=== PATIENT | female | born 1985 | race Caucasian/White ===

== ENCOUNTER 2016-08-02 14:42 | Inpatient (IN) | payer MEDICAID ==
[~2016-08-02] VITALS: Ht 157.5 cm; Wt 83.2 kg
[2016-08-02 17:12] VITALS: Ht 157.5 cm; Wt 83.2 kg
[2016-08-02 17:29] VITALS: BP 104/62; PULSE 100; RESP 18
[2016-08-02] MEDS ORDERED: PRENAT PO (17:34)
[2016-08-02] MEDS ORDERED: FERR325C PO (17:35)
[2016-08-02] MEDS: LACTATED RINGER'S 1,000 ML IV SCH (18:29)
[2016-08-02 18:39] LABS: BASOPHILS % 0.4 % (0.0-2.0); EOSINOPHILS # 0.2 10^3/ul (0.0-0.5); EOSINOPHILS % 1.5 % (0.0-7.0); HEMATOCRIT 29.1 % (37.0-47.0); HEMOGLOBIN 9.8 g/dl (12.0-16.0); LYMPHOCYTES # 2.6 10^3/ul (0.8-2.9); LYMPHOCYTES % 23.8 % (15.0-51.0); MEAN CORPUSCULAR HGB CONC 33.8 g/dl (32.0-37.0); MEAN PLATELET VOLUME 8.2 fl (7.4-10.4); MONOCYTE # 0.6 10^3/ul (0.3-0.9); MONOCYTES % 5.1 % (0.0-11.0); NEUTROPHIL # 7.7 10^3/ul (1.6-7.5); NEUTROPHILS % 69.2 % (39.0-77.0); PLATELET COUNT 301 10^3/UL (140-440); RED CELL DISTRIBUTION WIDTH 13.2 % (11.5-14.5); UNCORRECTED WBC 11.1 10^3/ul (4.8-10.8); WHITE BLOOD COUNT 11.1 10^3/ul (4.8-10.8)
[2016-08-02 18:50] LABS: ALBUMIN 3.6 g/dl (3.3-4.9); POTASSIUM 3.8 mmol/L (3.5-5.1)
[2016-08-02 18:53] LABS: ALBUMIN/GLOBULIN RATIO 0.97; BILIRUBIN,INDIRECT 0.1 mg/dl (0-1.1); BILIRUBIN,TOTAL 0.1 mg/dl (0.2-1.3); CREATININE 0.4 mg/dl (0.44-1.00); TOTAL PROTEIN 7.3 g/dl (6.1-8.1)
[2016-08-02] MEDS: BETAMET NA PHOS/AC(6 MG/ML) 5ML INJ IM SCH (18:55)
[2016-08-02] MEDS ORDERED: ERYTHROMYCIN LACTOBIONATE 500 MG in SOD CHLORIDE 0.9% 100 ML IVPB SCH (19:00)
[2016-08-02 19:06] LABS: CONDITION 1
[2016-08-02] MEDS ORDERED: MAGNESIUM SULFATE 4 GM/100 ML 100 ML IVPB ONE (19:30)
[2016-08-02] MEDS: ERYTHROMYCIN LACTOBIONATE 500 MG in SOD CHLORIDE 0.9% 100 ML IVPB SCH (20:11)
[2016-08-02] MEDS: MAGNESIUM SULFATE 20 GM/500 ML 500 ML IV SCH (20:28)
[2016-08-03] MEDS: LACTATED RINGER'S 1,000 ML IV SCH ×5 (01:38→22:05)
[2016-08-03] MEDS: ERYTHROMYCIN LACTOBIONATE 500 MG in SOD CHLORIDE 0.9% 100 ML IVPB SCH ×3 (04:19→21:40)
[2016-08-03] MEDS: MAGNESIUM SULFATE 20 GM/500 ML 500 ML IV SCH ×2 (05:52→16:17)
--- NOTE | 2016-08-03 09:55 | CONS ---
DATE OF ADMISSION: 08/02/2016 DATE OF CONSULTATION: 08/02/2016 TYPE OF CONSULTATION: Triage consult HISTORY OF PRESENT ILLNESS: This patient is a 31-year-old 1, para 0, whose due date is 10/24/2016, which makes her about 28 weeks and 1 day. She was having occasional contractions and was sent to the triage area for further evaluation. Actually, she has been followed in perinatology for low growth and possible IUGR. She also had an elevated RG of 20.1. In the triage area we noted that patient having more frequent contractions and the cervical length was reported as 1 cm and funneling. Due to this evidence of premature labor. she was admitted in the hospital. PAST MEDICAL HISTORY: In reviewing her past medical history, she SAYS SHE IS ALLERGIC TO PENICILLIN. No other major medical problems in the past. FAMILY HISTORY: Noncontributory. PHYSICAL EXAMINATION: GENERAL: She is a well-developed, well-nourished lady, about 7-1/2 months. EARS, NOSE AND THROAT: Appear to be normal. NECK: Normal. No neck vein distention, no thyromegaly, no lymph node enlargement anywhere in her body. LUNGS: Clear to auscultation and percussion. HEART: Normal sinus rhythm. ABDOMEN: Soft. She is siobhan every 5 to 6 minutes. heart tone at this time is normal. An NST, although at 28 weeks, is fairly reactive. Ultrasound study today in the perinatology clinic again was reported a due date of 10/25/2016. Cephalic presentation, amniotic RG was 20.9. Her gestational was given as 28 weeks and 1 day. Due to contractions, she is admitted for tocolysis and due to ALLERGY TO PENICILLIN, we are going to start her on erythromycin and also due to frequent contractions, Mag sulfate was started. As I mentioned, antibiotic was given, and we will give betamethasone. Dictated By: ANSHU SIMMONS/RENATO Conf#: [id number] DID#: [id number] MTDD
[2016-08-03 12:41] LABS: ADD UMIC NO; URINE BILIRUBIN (Dip) NEGATIVE (NEGATIVE); URINE BLOOD (Dip) NEGATIVE (NEGATIVE); URINE COLOR LT. YELLOW (YELLOW); URINE GLUCOSE (Dip) NEGATIVE (NEGATIVE); URINE KETONES (Dip) 15 (NEGATIVE); URINE LEUKOCYTE ESTERASE (Dip) NEGATIVE (NEGATIVE); URINE NITRITE (Dip) NEGATIVE (NEGATIVE); URINE TOTAL PROTEIN (Dip) NEGATIVE (NEGATIVE); URINE UROBILINOGEN (Dip) 0.2 E.U./dL (0.1-1.0)
--- NOTE | 2016-08-03 15:52 | CONS ---
DATE OF ADMISSION: 08/02/2016 DATE OF CONSULTATION: 08/03/2016 HISTORY OF PRESENT ILLNESS: The patient is G1 at 28 weeks and 3 days who was sent to [address] [place] [address] to the short cervix and also the patient stated she had some leaking for the past few days. Apparently she was ruled out for rupture of membrane. She was subsequently placed on magnesium sulf ate and given betamethasone. Currently she is stable. She has some dizziness because of magnesium sulfate. Otherwise, no problem. She also had some nausea which is secondary to magnesium sulfate. PAST MEDICAL HISTORY: Negative. PAST SURGICAL HISTORY: Negative. OBSTETRIC HISTORY: Negative. REVIEW OF SYSTEMS: Negative except for what is mentioned above. VITAL SIGNS: Stable. PHYSICAL EXAMINATION: Deferred. HEART TONES: Reassuring for the gestational age. CONTRACTIONS: None. IMPRESSION: Intrauterine at 28 weeks and 3 days with labor on magnesium sulfate, status post betamethasone x1. She is to receive the second dose of betamethasone today. RECOMMENDATIONS: Continue with the magnesium sulfate for 24 hours after the second dose of betameth asone, then discontinue. If necessary, the patient can be started on Procardia 20 mg every 6 hours for tocolysis and can be continued until 36 weeks if blood pressures allow. In-house management until 30 weeks is recommended secondary to prematurity and very short cervix. I f urinalysis has not been done, I do recommend urinalysis and also NICU consult. Dictated By: KAE JACKSON/RENATO Conf#: [id number] DID#: [id number]
--- NOTE | 2016-08-03 15:55 | CONS ---
DATE OF ADMISSION: 08/02/2016 DATE OF CONSULTATION: 08/03/2016 ADDENDUM In terms of the magnesium sulfate, I do recommend to decrease the magnesium sulfate to 1.5 grams as the patient has some nausea and some dizziness because of the magnesium. Her last mag level was abo ut 5 and I do recommend to repeat the magnesium sulfate again. Dictated By: KAE JACKSON/RENATO Conf#: [id number] DID#: [id number]
[2016-08-03] MEDS: BETAMET NA PHOS/AC(6 MG/ML) 5ML INJ IM SCH (18:38)
--- NOTE | 2016-08-03 19:07 | PN ---
Date/Time of Note Date/Time of Note DATE: 08/03/16 TIME: 18:46 OB Subjective Subjective Subjective Vital sign stable, complaining of very mild dizziness, nausea has improved her magnesium sulfate reduced from 2 g per hour to 1 g per hour she was seen today by the perinatologist, plan of treatment reviewed we will continue current treatment,she is is being closely watched for for any cervical changes if no cervical change we with stop magnesium sulfate and replace it with Procardia. JEFF ROMO MD Aug 03, 2016 18:59
[2016-08-04] MEDS: LACTATED RINGER'S 1,000 ML IV SCH ×4 (01:38→17:41)
[2016-08-04] MEDS: ERYTHROMYCIN LACTOBIONATE 500 MG in SOD CHLORIDE 0.9% 100 ML IVPB SCH (05:34)
--- NOTE | 2016-08-04 15:50 | PN ---
Date/Time of Note Date/Time of Note DATE: 08/04/16 TIME: 15:43 OB Subjective Subjective Subjective Vital sign a stable afebrile, resting is no contractions antibiotics was discontinue, magnesium sulfate will be discontinued amwe will start Procardia 20mg q/6 has of tomorrow JEFF ROMO MD Aug 04, 2016 15:50
[2016-08-05] MEDS: LACTATED RINGER'S 1,000 ML IV SCH (03:43)
[2016-08-05] MEDS: MAGNESIUM SULFATE 20 GM/500 ML 500 ML IV SCH ×2 (04:22→05:12)
--- NOTE | 2016-08-05 10:15 | PN ---
Date/Time of Note Date/Time of Note DATE: 08/05/16 TIME: 10:12 OB Subjective Subjective Subjective Patient is resting in bed , no contractions, her vital signs are stable, magnesium sulfate discontinued and she is started on Procardia 20 mg every 6 hours. JEFF ROMO MD Aug 05, 2016 10:15
[2016-08-05] MEDS: NIFEdipine 10 MG CAP PO SCH ×2 (12:37→17:55)
[2016-08-05] MEDS: ACETAMINOPHEN 500 MG TAB PO PRN (20:15)
[2016-08-05] MEDS ORDERED: METOCLOPRAMIDE 10 MG INJ IV ONE (20:30)
[2016-08-06] MEDS: NIFEdipine 10 MG CAP PO SCH ×5 (00:06→23:57)
[2016-08-06] MEDS: MULTIVIT/MIN/FOLATE/IRON/PREN TAB PO SCH (11:53)
--- NOTE | 2016-08-06 12:45 | PN ---
Date/Time of Note Date/Time of Note DATE: 08/06/16 TIME: 12:40 OB Subjective Subjective Subjective Afebrile vital sign stable, has occasional contraction on the monitor but patient doesn't feel it, denies any leaking from the vagina or vaginal discharge , has received 2 sets of steroids will continue expecting management JEFF ROMO MD Aug 06, 2016 12:44
[2016-08-07] MEDS: NIFEdipine 10 MG CAP PO SCH ×4 (05:52→23:57)
[2016-08-07] MEDS: MULTIVIT/MIN/FOLATE/IRON/PREN TAB PO SCH (09:25)
--- NOTE | 2016-08-07 13:08 | PN ---
Date/Time of Note Date/Time of Note DATE: 08/07/16 TIME: 13:04 OB Subjective Subjective Subjective Vital sign stable afebrile, resting in bed no complaint of feeling the contractions that appears on the monitor, which continue expecting management JEFF ROMO MD Aug 07, 2016 13:08
[2016-08-08] MEDS: NIFEdipine 10 MG CAP PO SCH ×4 (06:01→23:55)
[2016-08-08] MEDS: MULTIVIT/MIN/FOLATE/IRON/PREN TAB PO SCH (09:20)
--- NOTE | 2016-08-08 09:52 | PN ---
Date/Time of Note Date/Time of Note DATE: 08/08/16 TIME: 09:49 OB Subjective Subjective Subjective 33 weeks 5 days, status no change since yesterday with continue expecting management till she is 34 weeks then may consider discharge. JEFF ROMO MD Aug 08, 2016 09:52
[2016-08-09] MEDS: NIFEdipine 10 MG CAP PO SCH ×3 (06:00→18:13)
[2016-08-09] MEDS: MULTIVIT/MIN/FOLATE/IRON/PREN TAB PO SCH (08:58)
--- NOTE | 2016-08-09 13:13 | CONS ---
DATE OF ADMISSION: 08/02/2016 DATE OF CONSULTATION: HISTORY OF PRESENT ILLNESS: This patient is a 31-year-old old 2, para 0 , 1 with EDC of 10/25/2015, which makes her now 29 weeks and 1 day. She was admitted in the hospital on 08/02/2016 due to IUGR and contractions. Actually, she was sent from perinatology clinic. On ultrasound examination, she had a short cervix . Subsequently, she was admitted in the hospital. Betamethasone was given, as well as magnesium sulfate She was placed on antibiotic, azithromycin 500 mg q.6h. which was discontinued in 3 days . Patient is afebrile. Currently she is on Procardia 20 mg every 6 hours. PHYSICAL EXAMINATION: GENERAL: She is fairly comfortable.No coughing no dyspnea. VITAL SIGNS: Afebrile. EARS, NOSE AND THROAT: Appear to be normal. CHEST: Clear to A & P. ABDOMEN: Soft. occasional contractions. heart tone is normal and reactive. EXTREMITIES: Normal.No edema No varicosity PLAN: Will keep her in the hospital and continue this her treatment till completed 30 weeks . Dictated By: ANSHU SOUZA MD HF/NTS Conf#: [id number] DID#: [id number] MTDD
[2016-08-09] MEDS: SENNA TAB PO PRN (21:24)
[2016-08-09] MEDS: DOCUSATE SODIUM 100 MG CAP PO SCH (21:24)
[2016-08-10] MEDS: NIFEdipine 10 MG CAP PO SCH ×5 (00:10→23:54)
[2016-08-10] MEDS: DOCUSATE SODIUM 100 MG CAP PO SCH ×2 (08:42→21:26)
[2016-08-10] MEDS: MULTIVIT/MIN/FOLATE/IRON/PREN TAB PO SCH (08:42)
--- NOTE | 2016-08-10 16:23 | PN ---
Date/Time of Note Date/Time of Note DATE: 08/10/16 TIME: 16:19 OB Subjective Subjective Subjective Stable condition feels no contraction even though monitor showed some space that and irregular contractions, at this time she is resting in bed in no apparent discomfort abdominal pain or contractions heart tracing category 1 compatible with stage of the JEFF ROMO MD Aug 10, 2016 16:23
--- NOTE | 2016-08-10 16:31 | RADRPT ---
PROCEDURE: Limited obstetric ultrasound CLINICAL INDICATION: Pain TECHNIQUE: Multiple transverse and longitudinal grayscale images of the pelvis were obtained kamara sabdominally and transvaginally.. COMPARISON: same day FINDINGS: The cervix has a length of 0.6 cm. There is dilatation of the internal os measuring 3 mm. There is a single viable intrauterine gestation. Cardiac activity is present with 135 beats per min alatna. There is a vertex presentation. The placenta is fundal. There is no evidence for an abruption or placenta previa. RPTAT: AA IMPRESSION: Cervix length measures 0.6 cm. Dilated internal os. .David Leung MD, MD Date Time Electronically viewed and signed by .David Lenug MD, MD on 08/10/2016 16:31 .S/
[2016-08-11] MEDS: NIFEdipine 10 MG CAP PO SCH ×4 (05:50→23:50)
[2016-08-11] MEDS: DOCUSATE SODIUM 100 MG CAP PO SCH ×2 (08:38→21:37)
[2016-08-11] MEDS: SENNA TAB PO PRN (08:38)
[2016-08-11] MEDS: MULTIVIT/MIN/FOLATE/IRON/PREN TAB PO SCH (08:38)
[2016-08-12] MEDS: NIFEdipine 10 MG CAP PO SCH ×4 (05:55→23:59)
[2016-08-12] MEDS: MULTIVIT/MIN/FOLATE/IRON/PREN TAB PO SCH (09:02)
[2016-08-12] MEDS: DOCUSATE SODIUM 100 MG CAP PO SCH ×2 (09:02→20:58)
[2016-08-12] MEDS: SENNA TAB PO PRN (09:02)
[2016-08-12] MEDS: ACETAMINOPHEN 500 MG TAB PO PRN (09:02)
--- NOTE | 2016-08-12 13:58 | PN ---
Date/Time of Note Date/Time of Note DATE: 08/12/16 TIME: 13:55 OB Subjective Subjective Subjective vs stable ,resting in bed ,no contraction status no change ,will continue expecting management. JEFF ROMO MD Aug 12, 2016 13:57
[2016-08-13] MEDS: NIFEdipine 10 MG CAP PO SCH ×4 (05:57→23:46)
[2016-08-13] MEDS: MULTIVIT/MIN/FOLATE/IRON/PREN TAB PO SCH (08:31)
[2016-08-13] MEDS: DOCUSATE SODIUM 100 MG CAP PO SCH ×2 (08:31→20:52)
[2016-08-14] MEDS: NIFEdipine 10 MG CAP PO SCH ×3 (05:31→17:34)
[2016-08-14] MEDS: DOCUSATE SODIUM 100 MG CAP PO SCH ×2 (08:52→21:00)
[2016-08-14] MEDS: MULTIVIT/MIN/FOLATE/IRON/PREN TAB PO SCH (08:52)
--- NOTE | 2016-08-14 17:41 | PN ---
Date/Time of Note Date/Time of Note DATE: 08/14/16 TIME: 17:39 OB Subjective Subjective Subjective resting ,status no change JEFF ROMO MD Aug 14, 2016 17:40
[2016-08-14] MEDS: ACETAMINOPHEN 500 MG TAB PO PRN (19:24)
[2016-08-15] MEDS: NIFEdipine 10 MG CAP PO SCH ×5 (06:02→23:58)
[2016-08-15] MEDS: MULTIVIT/MIN/FOLATE/IRON/PREN TAB PO SCH (08:45)
[2016-08-15] MEDS: DOCUSATE SODIUM 100 MG CAP PO SCH ×2 (08:45→21:45)
[2016-08-16] MEDS: NIFEdipine 10 MG CAP PO SCH ×3 (06:06→17:41)
[2016-08-16] MEDS: DOCUSATE SODIUM 100 MG CAP PO SCH ×2 (08:46→21:07)
[2016-08-16] MEDS: MULTIVIT/MIN/FOLATE/IRON/PREN TAB PO SCH (08:46)
--- NOTE | 2016-08-16 17:22 | PN ---
Date/Time of Note Date/Time of Note DATE: 08/16/16 TIME: 17:15 OB Subjective Subjective Subjective August 16, 2016. This patient is a 31-year-old old 2, para 0, 1 with EDC of , which makes her now 30 weeks and 1 day She was admitted in the hospital on 08/02/2016 due to IUGR and contractions. Actually, she was sent from perinatology clinic. On ultrasound examination, she had a short cervix . Subsequently, she was admitted in the hospital. Betamethasone was given, as well as magnesium sulfate She was placed on antibiotic, azithromycin 500 mg q.6h. which was discontinued in 3 days . Patient is afebrile. Currently she is on Procardia 20 mg every 6 hours. Today her condition is stable. No contractions. No pain she is only on Procardia 20 mg every 6 hours heart tone is normal. Current Medications Medications (Trade) Dose Ordered Sig/Jennifer Route PRN Reason Start Time Stop Time Status Last Admin Dose Admin Lactated Ringer's (Lr) 1,000 ml @ 100 mls/hr Q10H IV 08/02/16 17:38 08/05/16 18:16 DC 08/05/16 03:43 Betamethasone Acet/Betameth SodPhos 12 mg 12 mg Q24H IM 08/02/16 18:00 08/03/16 18:01 DC 08/03/16 18:38 Erythromycin Lactobionate 500 mg/Sodium Chloride 100 ml @ 100 mls/hr Q6 IVPB 08/02/16 19:00 08/02/16 19:00 DC Erythromycin Lactobionate 500 mg/Sodium Chloride 100 ml @ 100 mls/hr Q8 IVPB 08/02/16 20:30 08/04/16 10:01 DC 08/04/16 05:34 Magnesium Sulfate 100 ml @ 25 mls/hr ONCE ONCE IVPB 08/02/16 19:30 08/02/16 23:29 DC 08/02/16 19:57 Magnesium Sulfate 500 ml @ 25 mls/hr Q20H IV 08/02/16 19:30 08/05/16 10:10 DC 08/05/16 05:12 Lactated Ringer's (Lr) 1,000 ml @ 75 mls/hr [id number] IV 08/03/16 06:31 08/04/16 17:45 DC 08/04/16 10:02 Nifedipine (Procardia) 20 mg Q6 PO 08/05/16 12:00 08/16/16 12:11 Metoclopramide HCl (Reglan) 10 mg ONCE ONCE IV 08/05/16 20:30 08/05/16 20:31 DC 08/05/16 20:15 Acetaminophen (Tylenol Tab) 1,000 mg Q6H PRN PO PAIN AND OR ELEVATED TEMP 08/05/16 20:30 08/14/16 19:24 Prenat Multivit/ Spinning Lathe Operator Automatic/Iron/Folic Ac ( S) 1 tab DAILY PO 08/06/16 09:00 08/16/16 08:46 Docusate Sodium (Colace) 100 mg BID PO 08/09/16 21:00 08/16/16 08:46 Senna (Senokot) 2 tab BID PRN PO CONSTIPATION 08/09/16 17:00 08/12/16 09:02 We will continue current regimen to 34 weeks of gestation. ANSHU SOUZA MD Aug 16, 2016 17:22
[2016-08-16] MEDS: SENNA TAB PO PRN (21:07)
[2016-08-17] MEDS: NIFEdipine 10 MG CAP PO SCH ×4 (00:09→17:29)
[2016-08-17] MEDS: DOCUSATE SODIUM 100 MG CAP PO SCH ×2 (08:39→21:16)
[2016-08-17] MEDS: MULTIVIT/MIN/FOLATE/IRON/PREN TAB PO SCH (08:39)
--- NOTE | 2016-08-17 17:07 | PN ---
Date/Time of Note Date/Time of Note DATE: 08/17/16 TIME: 17:05 OB Subjective Subjective Subjective Patient resting in bed no complaint of any contractions or pain monitor indicating few contraction patient denies feeling currently on Procardia 20 mg every 6 hours clinically has been no change since the day before. JEFF ROMO MD Aug 17, 2016 17:07
--- NOTE | 2016-08-17 17:38 | CONS ---
DATE OF ADMISSION: 08/02/2016 DATE OF CONSULTATION: 08/17/2016 TYPE OF CONSULTATION: . HISTORY OF PRESENT ILLNESS: I was asked to perform a consultation on Xiomy Vee who is a 31-year-old female G2, P0 with estimated gestational age of 30 2/7 weeks. She was admitted to [facility] on 08/02/2016 with a shortened cervix as well as labor. She was gi tere betamethasone on 08/02/2016 and 08/03/2016 as well as multiple doses of antibiotics and magnesiu m sulfate. She is currently receiving Procardia and plan of care is to keep the patient in the hosp ital until she is 34 weeks' gestational age. I spoke at length with Xiomy regarding complications associated with delivery at 30 weeks ge stational age. Discussed survival data. Discussed morbidities associated with delivery inc luding but not limited to risk of respiratory distress syndrome requiring chronic ventilator/oxygen support, apnea of prematurity, sepsis and necrotizing enterocolitis. Discussed the possibility of f uture neurodevelopmental delay including but not limited to risk of cerebral palsy, attention defici t disorder and autism which are all higher in infants born at gestation. Mom verbalized understanding of our discussion. Thank you for allowing me to participate in the care of this patient. Should any further questions arise, please do not hesitate to contact us. Dictated By: NGOZI MCNEILL MD, AM/NTS Conf#: [id number] DID#: [id number]
[2016-08-18] MEDS: NIFEdipine 10 MG CAP PO SCH ×5 (00:13→23:56)
[2016-08-18] MEDS: MULTIVIT/MIN/FOLATE/IRON/PREN TAB PO SCH (10:05)
[2016-08-18] MEDS: DOCUSATE SODIUM 100 MG CAP PO SCH ×2 (10:06→21:13)
[2016-08-19] MEDS: NIFEdipine 10 MG CAP PO SCH ×4 (06:01→23:50)
[2016-08-19] MEDS: MULTIVIT/MIN/FOLATE/IRON/PREN TAB PO SCH (08:37)
[2016-08-19] MEDS: DOCUSATE SODIUM 100 MG CAP PO SCH ×2 (08:37→20:40)
--- NOTE | 2016-08-19 12:25 | PN ---
Date/Time of Note Date/Time of Note DATE: 08/19/16 TIME: 12:23 OB Subjective Subjective Subjective Afebrile vital signs are stable has some mild contraction showing on the monitor but not felt by the patient, resting in bed no complete of any discomfort or pain will continue close follow-up. JEFF ROMO MD Aug 19, 2016 12:25
[2016-08-19] MEDS: SENNA TAB PO PRN (14:30)
[2016-08-20] MEDS: NIFEdipine 10 MG CAP PO SCH ×3 (05:54→17:48)
[2016-08-20] MEDS: DOCUSATE SODIUM 100 MG CAP PO SCH ×2 (08:29→20:26)
[2016-08-20] MEDS: MULTIVIT/MIN/FOLATE/IRON/PREN TAB PO SCH (09:00)
--- NOTE | 2016-08-20 10:30 | PN ---
Date/Time of Note Date/Time of Note DATE: 08/20/16 TIME: 10:26 OB Subjective Subjective Subjective Today she is 30 week 5/7 days ,vital signs are stable, resting in bed , occasional none felt contraction in general doing well we will continue expectant management. till 34 weeks of gestation. JEFF ROMO MD Aug 20, 2016 10:30
[2016-08-21] MEDS: NIFEdipine 10 MG CAP PO SCH ×5 (00:16→23:31)
[2016-08-21] MEDS: MULTIVIT/MIN/FOLATE/IRON/PREN TAB PO SCH (09:19)
[2016-08-21] MEDS: DOCUSATE SODIUM 100 MG CAP PO SCH ×2 (09:19→20:58)
--- NOTE | 2016-08-21 14:17 | PN ---
Date/Time of Note Date/Time of Note DATE: 08/21/16 TIME: 14:15 OB Subjective Subjective Subjective Vital signs stable today 30 weeks and / not complaining of contractions , resting ,status no change as of yesterday we will continue expectant management JEFF ROMO MD Aug 21, 2016 14:17
[2016-08-21] MEDS: SENNA TAB PO PRN (20:58)
[2016-08-22] MEDS: NIFEdipine 10 MG CAP PO SCH ×3 (05:31→18:07)
[2016-08-22] MEDS: DOCUSATE SODIUM 100 MG CAP PO SCH ×2 (08:53→21:05)
[2016-08-22] MEDS: SENNA TAB PO PRN (08:53)
[2016-08-22] MEDS: MULTIVIT/MIN/FOLATE/IRON/PREN TAB PO SCH (08:53)
--- NOTE | 2016-08-22 13:42 | PN ---
Date/Time of Note Date/Time of Note DATE: 08/22/16 TIME: 13:40 OB Subjective Subjective Subjective Vital signs are stable, occasional contractions not felt by the patient, ultrasound report of 08/21 16 cervical length 0.6 cm, will continue observation and expecting management JEFF ROMO MD Aug 22, 2016 13:42
[2016-08-23] MEDS: NIFEdipine 10 MG CAP PO SCH ×5 (01:30→23:55)
[2016-08-23] MEDS: MULTIVIT/MIN/FOLATE/IRON/PREN TAB PO SCH (08:41)
[2016-08-23] MEDS: DOCUSATE SODIUM 100 MG CAP PO SCH ×2 (08:41→22:13)
--- NOTE | 2016-08-23 09:37 | PN ---
Date/Time of Note Date/Time of Note DATE: 08/23/16 TIME: 09:36 OB Subjective Subjective Subjective Vital signs are stable resting in bed denies feeling any contractions even though they are some mild contraction showing on the monitor otherwise no change in her status. JEFF ROMO MD Aug 23, 2016 09:37
--- NOTE | 2016-08-23 09:43 | PD.PPDC ---
JOB HAND Discharge Instruction Condition Patient Condition: Good Diet Diet: Resume Regular Diet Activity/Restrictions Activity: Bedrest May be up to bathroom May be up for meals May Shower Restrictions: No Exercising No Lifting No Driving No Sexual Activity Nothing in the Vagina No [place] No Tampons, douche Follow-up Follow-up with Physician: 1, Day/Days Provider Information: need ,to see perinatologist am at [facility] JEFF ROMO MD Aug 23, 2016 09:43
--- NOTE | 2016-08-23 09:51 | DS ---
Date/Time of Note Date/Time of Note DATE: 08/23/16 TIME: 09:44 Obstetrical Discharge Record Final Diagnosis Final Diagnosis: not delivered Condition on Discharge Physical Assessment Last Vitals: 31 years old female 3 para 2 EDC 10/26/2016 originally was admitted to rule out PIH. Her workup for PIH all within normal but -24 hours urine collection not available at this time, telephone consultation with perinatologist recommended to discharge patient with follow-up appointment for tomorrow at perinatology clinic. Voiding: Yes Breast: Soft, non-tender Fundus: Other (Consistent with 31 week of ) Calf Tenderness: No Patient Condition: Good JEFF ROMO MD Aug 23, 2016 09:51
[2016-08-24] MEDS: NIFEdipine 10 MG CAP PO SCH ×4 (05:51→23:48)
[2016-08-24] MEDS: MULTIVIT/MIN/FOLATE/IRON/PREN TAB PO SCH (09:54)
[2016-08-24] MEDS: DOCUSATE SODIUM 100 MG CAP PO SCH ×2 (09:54→20:40)
[2016-08-25] MEDS: NIFEdipine 10 MG CAP PO SCH ×3 (06:02→17:39)
[2016-08-25] MEDS: DOCUSATE SODIUM 100 MG CAP PO SCH ×2 (08:59→20:45)
[2016-08-25] MEDS: MULTIVIT/MIN/FOLATE/IRON/PREN TAB PO SCH (08:59)
--- NOTE | 2016-08-25 11:47 | PN ---
Date/Time of Note Date/Time of Note DATE: 08/25/16 TIME: 11:45 OB Subjective Subjective Subjective Vital signs are stable, patient is resting and not feeling any contractions some mild contractions noted on the monitor, will continue expectant management status no change as of yesterday JEFF ROMO MD Aug 25, 2016 11:47
[2016-08-26] MEDS: NIFEdipine 10 MG CAP PO SCH ×5 (00:08→23:52)
[2016-08-26] MEDS: SENNA TAB PO PRN (08:55)
[2016-08-26] MEDS: MULTIVIT/MIN/FOLATE/IRON/PREN TAB PO SCH (08:55)
[2016-08-26] MEDS: DOCUSATE SODIUM 100 MG CAP PO SCH ×2 (08:55→20:35)
--- NOTE | 2016-08-26 13:48 | PN ---
Date/Time of Note Date/Time of Note DATE: 08/26/16 TIME: 13:45 OB Subjective Subjective Subjective Vital signs stable, no contractions that the patient can feel occasional contractions on the monitor ,resting in bed not complaining of pain or contractions status stable. heart tone category 1 JEFF ROMO MD Aug 26, 2016 13:48
[2016-08-27] MEDS: NIFEdipine 10 MG CAP PO SCH ×3 (05:53→18:11)
[2016-08-27] MEDS: DOCUSATE SODIUM 100 MG CAP PO SCH ×2 (09:45→23:15)
[2016-08-27] MEDS: MULTIVIT/MIN/FOLATE/IRON/PREN TAB PO SCH (09:45)
[2016-08-27] MEDS: SENNA TAB PO PRN (09:47)
[2016-08-28] MEDS: NIFEdipine 10 MG CAP PO SCH ×4 (00:06→18:18)
[2016-08-28] MEDS: DOCUSATE SODIUM 100 MG CAP PO SCH ×2 (08:24→21:26)
[2016-08-28] MEDS: MULTIVIT/MIN/FOLATE/IRON/PREN TAB PO SCH (08:24)
--- NOTE | 2016-08-28 13:46 | PN ---
Date/Time of Note Date/Time of Note DATE: 08/28/16 TIME: 13:43 OB Subjective Subjective Subjective Today 31 weeks 5 days resting in bed having lunch no contraction that she can feel monitor indicates few contractions per hour, no change in her status as of yesterday JEFF ROMO MD Aug 28, 2016 13:46
[2016-08-29] MEDS: NIFEdipine 10 MG CAP PO SCH ×4 (00:18→18:00)
[2016-08-29] MEDS: DOCUSATE SODIUM 100 MG CAP PO SCH ×2 (08:43→21:19)
[2016-08-29] MEDS: MULTIVIT/MIN/FOLATE/IRON/PREN TAB PO SCH (08:43)
--- NOTE | 2016-08-29 10:21 | PN ---
Date/Time of Note Date/Time of Note DATE: 08/29/16 TIME: 10:18 OB Subjective Subjective Subjective Afebrile vital signs stable no contractions, resting in bed, no complaint of contractions or pain will continue expecting management. JEFF ROMO MD Aug 29, 2016 10:21
[2016-08-30] MEDS: NIFEdipine 10 MG CAP PO SCH ×4 (00:12→18:29)
[2016-08-30] MEDS: DOCUSATE SODIUM 100 MG CAP PO SCH ×2 (09:05→21:21)
[2016-08-30] MEDS: MULTIVIT/MIN/FOLATE/IRON/PREN TAB PO SCH (09:05)
--- NOTE | 2016-08-30 17:36 | PN ---
Date/Time of Note Date/Time of Note DATE: 08/30/16 TIME: 17:35 OB Subjective Subjective Subjective Vital signs stable, no contractions, we will continue expectant management JEFF ROMO MD Aug 30, 2016 17:36
[2016-08-31] MEDS: NIFEdipine 10 MG CAP PO SCH ×5 (00:43→23:45)
[2016-08-31] MEDS: MULTIVIT/MIN/FOLATE/IRON/PREN TAB PO SCH (09:12)
[2016-08-31] MEDS: DOCUSATE SODIUM 100 MG CAP PO SCH (09:12)
--- NOTE | 2016-08-31 19:28 | PN ---
Date/Time of Note Date/Time of Note DATE: 08/31/16 TIME: 19:24 OB Subjective Subjective Subjective Afebrile vital signs stable status no change as of yesterday, occasional mild contraction not felt, will continue observation and expectant management . JEFF ROMO MD Aug 31, 2016 19:28
[2016-09-01] MEDS: NIFEdipine 10 MG CAP PO SCH ×4 (06:18→23:55)
[2016-09-01] MEDS: DOCUSATE SODIUM 100 MG CAP PO SCH ×3 (08:53→21:48)
[2016-09-01] MEDS: MULTIVIT/MIN/FOLATE/IRON/PREN TAB PO SCH (08:53)
--- NOTE | 2016-09-01 13:43 | PN ---
Date/Time of Note Date/Time of Note DATE: 09/01/16 TIME: 13:42 OB Subjective Subjective Subjective Vital signs stable afebrile, resting no complaints of contractions status no changes of the day before JEFF ROMO MD Sep 01, 2016 13:43
[2016-09-02] MEDS: NIFEdipine 10 MG CAP PO SCH ×4 (06:02→23:54)
[2016-09-02] MEDS: DOCUSATE SODIUM 100 MG CAP PO SCH (09:00)
[2016-09-02] MEDS: MULTIVIT/MIN/FOLATE/IRON/PREN TAB PO SCH (09:00)
--- NOTE | 2016-09-02 12:58 | PN ---
Date/Time of Note Date/Time of Note DATE: 09/02/16 TIME: 12:56 OB Subjective Subjective Subjective Vital signs stable, resting in bed, feels no contractions some contractions noted on the monitor patient is doing with continued expecting management, JEFF ROMO MD Sep 02, 2016 12:58
[2016-09-03] MEDS: NIFEdipine 10 MG CAP PO SCH ×3 (06:04→17:40)
[2016-09-03] MEDS: MULTIVIT/MIN/FOLATE/IRON/PREN TAB PO SCH (09:17)
[2016-09-03] MEDS: DOCUSATE SODIUM 100 MG CAP PO SCH ×2 (09:17→21:31)
--- NOTE | 2016-09-03 09:46 | PN ---
Date/Time of Note Date/Time of Note DATE: 09/03/16 TIME: 09:44 OB Subjective Subjective Subjective Vital signs stable, no contraction, resting in bed, no complaint not feeling any contractions will continue expectant management JEFF ROMO MD Sep 03, 2016 09:46
[2016-09-04] MEDS: NIFEdipine 10 MG CAP PO SCH ×4 (00:05→17:40)
[2016-09-04] MEDS: DOCUSATE SODIUM 100 MG CAP PO SCH ×2 (08:56→21:16)
[2016-09-04] MEDS: MULTIVIT/MIN/FOLATE/IRON/PREN TAB PO SCH (08:56)
--- NOTE | 2016-09-04 09:59 | PN ---
Date/Time of Note Date/Time of Note DATE: 09/04/16 TIME: 09:57 OB Subjective Subjective Subjective Vital signs stable, 2 day she is 33 weeks 6 7 days, occasional contractions but she does not feel it resting in bed with no complaints we will continue expecting management. JEFF ROMO MD Sep 04, 2016 09:59
[2016-09-05] MEDS: NIFEdipine 10 MG CAP PO SCH ×4 (00:28→17:36)
[2016-09-05] MEDS: MULTIVIT/MIN/FOLATE/IRON/PREN TAB PO SCH (08:48)
[2016-09-05] MEDS: DOCUSATE SODIUM 100 MG CAP PO SCH ×2 (08:48→21:13)
[2016-09-06] MEDS: NIFEdipine 10 MG CAP PO SCH ×5 (00:15→23:56)
[2016-09-06] MEDS: MULTIVIT/MIN/FOLATE/IRON/PREN TAB PO SCH (09:07)
[2016-09-06] MEDS: DOCUSATE SODIUM 100 MG CAP PO SCH ×2 (09:07→21:07)
[2016-09-07] MEDS: NIFEdipine 10 MG CAP PO SCH ×4 (06:17→23:53)
[2016-09-07] MEDS: DOCUSATE SODIUM 100 MG CAP PO SCH ×2 (08:55→21:13)
[2016-09-07] MEDS: MULTIVIT/MIN/FOLATE/IRON/PREN TAB PO SCH (08:55)
[2016-09-08] MEDS: NIFEdipine 10 MG CAP PO SCH ×4 (05:56→23:56)
[2016-09-08] MEDS: DOCUSATE SODIUM 100 MG CAP PO SCH ×2 (09:01→20:49)
[2016-09-08] MEDS: MULTIVIT/MIN/FOLATE/IRON/PREN TAB PO SCH (09:01)
[2016-09-09] MEDS: NIFEdipine 10 MG CAP PO SCH ×4 (06:05→23:55)
[2016-09-09] MEDS: DOCUSATE SODIUM 100 MG CAP PO SCH ×2 (08:43→21:00)
[2016-09-09] MEDS: MULTIVIT/MIN/FOLATE/IRON/PREN TAB PO SCH (08:43)
--- NOTE | 2016-09-09 18:22 | PN ---
Date/Time of Note Date/Time of Note DATE: 09/09/16 TIME: 18:21 OB Subjective Subjective Subjective Status no change as of yesterday feels no contraction will continue expecting management JEFF ROMO MD Sep 09, 2016 18:22
[2016-09-10] MEDS: NIFEdipine 10 MG CAP PO SCH ×3 (05:58→17:50)
[2016-09-10] MEDS: DOCUSATE SODIUM 100 MG CAP PO SCH ×2 (09:00→21:39)
[2016-09-10] MEDS: MULTIVIT/MIN/FOLATE/IRON/PREN TAB PO SCH (09:00)
[2016-09-11] MEDS: NIFEdipine 10 MG CAP PO SCH ×4 (00:11→18:14)
--- NOTE | 2016-09-11 08:30 | RADRPT ---
PROCEDURE: US OB. Ultrasound cervix CLINICAL INDICATION: Size and dates , short cervix TECHNIQUE: Multiple sonographic images of the pelvis and gravid uterus were obtained. The images were reviewed on a PACS workstation. In addition transvaginal images of the cervix were obtained. COMPARISON: 08/10/2016 FINDINGS: The cervix is closed with a length of 0.4 cm. There is a single viable intrauterine gestation. Cardiac activity is present with 139 beats per min [place]. There is a vertex presentation. The placenta is fundal. There is no evidence for an abruption or placenta previa. Measurements were made in order to determine age. The results are as follows: BPD =8.8 cm HC =31.3 cm AC =32.4 cm FL =6.4 cm Estimated gestational age of approximately 35 weeks and 0 days based on ultrasound measurements. Clinical age: 33 weeks and 6 days. The estimated date of delivery is 10/16/16, based on ultrasound measurements. The EFW = 2631 g, 83%, based on LMP age. RPTAT: AA IMPRESSION: Single viable intrauterine gestation of approximately 35 weeks and 0 days based on ultrasound measu rements. Cervix is short and measures 0.4 cm in length. .David Leung MD, Date Time Electronically viewed and signed by .David Leung MD, MD on 09/11/2016 08:30 .S/
[2016-09-11] MEDS: MULTIVIT/MIN/FOLATE/IRON/PREN TAB PO SCH (09:24)
[2016-09-11] MEDS: DOCUSATE SODIUM 100 MG CAP PO SCH ×2 (09:24→21:09)
[2016-09-12] MEDS: NIFEdipine 10 MG CAP PO SCH ×4 (00:10→17:36)
[2016-09-12] MEDS: DOCUSATE SODIUM 100 MG CAP PO SCH (09:18)
[2016-09-12] MEDS: MULTIVIT/MIN/FOLATE/IRON/PREN TAB PO SCH (09:19)
--- NOTE | 2016-09-12 13:57 | DS ---
Date/Time of Note Date/Time of Note DATE: 09/12/16 TIME: 13:40 Obstetrical Discharge Record Final Diagnosis Final Diagnosis: not delivered Complications Labor Condition on Discharge Physical Assessment Last Vitals: This 31 years old female 2 para 0 AB one with EDC of October was admitted to the hospital on August 02 due to per term labor and contraction with short cx at the beginning patient was treated with magnesium sulfate received 2 doses steroids and placed on Procardia 20 mg every 6hours, on bedrest, today she is 34 weeks planning to discharge and to continue follow-up as an outpatient, advised to continue taking Procardia 20 mg every 6 hours, follow-up at the clinic, at the time of discharge her vital signs were stable monitor shows some mild contraction which she does not feel them, minimal cervical changes since admission recommended to make an appointment at the clinic within the next few days. Voiding: Yes Bowel Movement: Yes Breast: Soft, non-tender, Filling Fundus: Other ( uterus at 34-35 weeks) Calf Tenderness: No Patient Condition: Good JEFF ROMO MD Sep 12, 2016 13:54
== END 2016-09-12 17:55 | disposition home or self-care (01) | DRG 782 ==
LOC: OBG 14:42
PROVIDERS: ADMIT Obstetrics & Gynecology; ATTEND Obstetrics & Gynecology
DX: O36.5930 Maternal care for other known or suspected poor fetal growth, third trimester, not applicable or unspecified (principal); O60.03 Preterm labor without delivery, third trimester; O26.873 Cervical shortening, third trimester; Z3A.28 28 weeks gestation of pregnancy
CPT/HCPCS: 76815; 76817; 80053; 81003; 83735; 84112; 85025; 86850; 86900; 86901; 87086; J0702; J1364; J2765; J3475; J7120

== ENCOUNTER 2016-10-06 08:42 | Inpatient (IN) | payer MEDICAID ==
[~2016-10-06] VITALS: Ht 152.4 cm; Wt 85.9 kg
[~2016-10-06 08:42] MED LIST: FERR325C PO; PRENAT PO
[2016-10-06] MEDS ORDERED: LACTATED RINGER'S 1,000 ML IV SCH (08:55)
[2016-10-06] MEDS ORDERED: OXYTOCIN 30 UNITS/LR 500 ML IV SCH ×2 (09:00)
[2016-10-06] MEDS ORDERED: LACTATED RINGER'S 1,000 ML IV PRN (09:00)
[2016-10-06] MEDS ORDERED: MISOPROSTOL 200 MCG TAB PR PRN (09:00)
[2016-10-06] MEDS ORDERED: METHYLERGONOVINE 0.2 MG INJ IM PRN (09:00)
[2016-10-06] MEDS ORDERED: BUTORPHANOL 2 MG INJ IV PRN (09:00)
[2016-10-06] MEDS ORDERED: CLINDAMYCIN 900 MG/D5W (PMX) 50 ML IV SCH (09:00)
[2016-10-06] MEDS ORDERED: OXYTOCIN 30 UNITS/LR 500 ML IV PRN (09:00)
[2016-10-06] MEDS ORDERED: IBUPROFEN 600 MG TAB PO PRN (09:00)
[2016-10-06] MEDS ORDERED: LIDOCAINE 1% (MPF) 30 ML INJ INJ PRN (09:00)
[2016-10-06] MEDS ORDERED: CARBOPROST 250 MCG INJ IM PRN (09:00)
[2016-10-06 10:27] LABS: ADD SCAN DIFF NO
[2016-10-06 10:44] LABS: BASOPHILS % 0.4 % (0.0-2.0); EOSINOPHILS # 0.1 10^3/ul (0.0-0.5); EOSINOPHILS % 1.4 % (0.0-7.0); HEMATOCRIT 32.9 % (37.0-47.0); HEMOGLOBIN 10.8 g/dl (12.0-16.0); LYMPHOCYTES # 2.3 10^3/ul (0.8-2.9); LYMPHOCYTES % 28.6 % (15.0-51.0); MEAN CORPUSCULAR HEMOGLOBIN 27.3 pg (29.0-33.0); MEAN CORPUSCULAR HGB CONC 32.8 g/dl (32.0-37.0); MEAN CORPUSCULAR VOLUME 83.1 fl (82.0-101.0); MEAN PLATELET VOLUME 11.8 fl (7.4-10.4); MONOCYTE # 0.5 10^3/ul (0.3-0.9); MONOCYTES % 5.8 % (0.0-11.0); NEUTROPHIL # 5.1 10^3/ul (1.6-7.5); NEUTROPHILS % 62.8 % (39.0-77.0); PLATELET COUNT 332 10^3/UL (140-415); RED BLOOD COUNT 3.96 10^6/ul (4.20-5.40); RED CELL DISTRIBUTION WIDTH 14.9 % (11.5-14.5); WHITE BLOOD COUNT 8.1 10^3/ul (4.8-10.8)
[2016-10-06 10:47] LABS: INR 0.87; PARTIAL THROMBOPLASTIN TIME 26.4 Sec (25.0-35.0); PROTIME 11.8 Sec (12.2-14.2); PT RATIO 0.9
[2016-10-06] MEDS ORDERED: NALOXONE (0.4 MG/ML) INJ IV PRN (11:30)
[2016-10-06] MEDS ORDERED: EPHEDrine SULFATE 50 MG/5 ML SYG IV PRN (11:30)
[2016-10-06] MEDS ORDERED: FENTAnyl 2MCG/ML-ROPIV 0.2% 100 ML BAG EPI SCH (11:30)
[2016-10-06] MEDS ORDERED: ONDANSETRON 4 MG INJ IV PRN ×2 (11:30→21:00)
--- NOTE | 2016-10-06 17:14 | LDN ---
Date/Time of Note Date/Time of Note DATE: 10/06/16 TIME: 17:10 Delivery Summary Normal spontaneous vaginal delivery of a baby girl from BRUCE position shoulders delivered with no difficulty rest of the baby's body followed cord clamp after stopped pulsation placenta spontaneous expulsion inspected complete, patient sustained small first-degree perineal laceration repaired with 3-0 chromic catgut estimated blood loss 200 mL Placenta Delivered: Spontaneously Perineum intact?: No Anesthesia type: Epidural Estimated blood loss: 200 Sponge & Needle done & correct: Yes All needle counts correct: Yes Any foreign bodies felt in the: No Problems: Delivery Information Sex Infant Sex: female Apgars 1 Minute: 8 5 Minute: 9 Suctioning Nose & mouth suctioned at jose: Yes Delee suction performed: No Umbilical Cord Umbilical cord with: 3 Vessels Cord presentations: no nuchal cord Cord Blood was obtained: Yes JEFF ROMO MD Oct 06, 2016 17:14
--- NOTE | 2016-10-06 17:21 | HP ---
Date/Time of Note Date/Time of Note DATE: 10/06/16 TIME: 17:15 OB - History Hx of Present Free Text/Dictation This is a 31 years old female admitted to [facility] inlaid her EDC is October 24, 2016, admission pelvic examination, cervix 6 cm dilated 90% effaced vertex at -2 station heart rate category one Estimated Due Date: Oct 24, 2016 : 2 Para: 0 Spontaneous : 1 Therapeutic : 0 Care: Limited Care Ultrasounds: Normal mid trimester US Obstetrical Complications: None Medical Complications: None Past Family/Social History * Past Medical, Surgical, Family and Obstetric Histories reviewed from chart. Rubella: immune RPR/VDRL: Negative GBS Status: Negative HBsAG: Negative OB Admission Exam Physical Exam HEENT: WNL Heart: Rhythm Normal Lungs: Clear, Equal Abdomen: WNL Extremities: Normal Reflexes: Normal Cervical Dilatation: 6cm Effacement: Other (90%) Station: -1 Membranes: Intact Heart Rate: 130's Accelerations: Accelerations Present Decelerations: No Decelerations Varibility: Marked Contractions on Admission: < 5 Minutes Apart Intensity: Firm Last 72 hours Lab Results CBC & BMP 10/06/16 08:55 JEFF ROMO MD Oct 06, 2016 17:21
[2016-10-06 20:00] VITALS: BP 104/65; PULSE 103; RESP 17
[2016-10-06] MEDS ORDERED: DIBUCAINE 1% 30 GM OINT PR PRN (21:00)
[2016-10-06] MEDS ORDERED: ACETAMINOPHEN 325 MG TAB PO PRN (21:00)
[2016-10-06] MEDS ORDERED: LANOLIN 7 GM TUBE TOP PRN (21:00)
[2016-10-06] MEDS ORDERED: WITCH HAZEL/GLYCERIN PAD PR PRN (21:00)
[2016-10-06] MEDS ORDERED: ACETAMINOPHEN/CODEINE #3 TAB PO PRN ×2 (21:00)
[2016-10-06] MEDS ORDERED: OXYCODONE/ASPIRIN (4.88/325) TAB PO PRN ×2 (21:00)
[2016-10-06] MEDS: SENNA/DOCUSATE NA (8.6MG/50MG) TAB PO SCH (21:49)
[2016-10-06] MEDS: OXYTOCIN 30 UNITS/LR 500 ML IV SCH (21:49)
[2016-10-06] MEDS: BENZOCAINE 20% 56 ML SPRAY TOP PRN (21:50)
[2016-10-07 00:30] VITALS: BP 92/61; PULSE 91; RESP 17
[2016-10-07] MEDS: OXYTOCIN 30 UNITS/LR 500 ML IV SCH (00:56)
[2016-10-07 05:19] VITALS: BP 106/63; PULSE 72; RESP 18
[2016-10-07] MEDS: IBUPROFEN 600 MG TAB PO SCH ×5 (05:36→23:32)
[2016-10-07 06:03] LABS: ADD SCAN DIFF NO
[2016-10-07 06:10] LABS: BASOPHILS % 0.2 % (0.0-2.0); EOSINOPHILS % 0.3 % (0.0-7.0); HEMATOCRIT 28.2 % (37.0-47.0); HEMOGLOBIN 9.2 g/dl (12.0-16.0); LYMPHOCYTES # 2.5 10^3/ul (0.8-2.9); LYMPHOCYTES % 20.2 % (15.0-51.0); MEAN CORPUSCULAR HEMOGLOBIN 27.2 pg (29.0-33.0); MEAN CORPUSCULAR HGB CONC 32.6 g/dl (32.0-37.0); MEAN CORPUSCULAR VOLUME 83.4 fl (82.0-101.0); MEAN PLATELET VOLUME 10.1 fl (7.4-10.4); MONOCYTE # 0.8 10^3/ul (0.3-0.9); MONOCYTES % 6.4 % (0.0-11.0); NEUTROPHIL # 8.9 10^3/ul (1.6-7.5); NEUTROPHILS % 72.2 % (39.0-77.0); PLATELET COUNT 271 10^3/UL (140-415); RED BLOOD COUNT 3.38 10^6/ul (4.20-5.40); RED CELL DISTRIBUTION WIDTH 14.8 % (11.5-14.5); WHITE BLOOD COUNT 12.3 10^3/ul (4.8-10.8)
[2016-10-07] MEDS: SENNA/DOCUSATE NA (8.6MG/50MG) TAB PO SCH ×2 (09:47→21:28)
--- NOTE | 2016-10-07 09:59 | QN ---
Documentation Comment PPD #1 s/p No c/o. . T= 98.2 BP 106/63 Fundus firm. Lochia minimal. Ext 1+ edema. P: D/C tomorrow. CRIS RODRIGUEZ MD Oct 07, 2016 09:58
[2016-10-07 16:00] VITALS: BP 106/65; PULSE 97; RESP 18
[2016-10-07 20:00] VITALS: BP 104/55; PULSE 98; RESP 18
[2016-10-08 04:00] VITALS: BP 104/61; PULSE 78; RESP 18
[2016-10-08] MEDS: IBUPROFEN 600 MG TAB PO SCH ×3 (05:42→17:47)
[2016-10-08 08:15] VITALS: BP 99/67; PULSE 83; RESP 17
[2016-10-08] MEDS ORDERED: MEASLES,MUMPS,RUBELLA VACCINE INJ SC* ONE (09:00)
[2016-10-08] MEDS: SENNA/DOCUSATE NA (8.6MG/50MG) TAB PO SCH (09:41)
--- NOTE | 2016-10-08 12:34 | PD.PPDC ---
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
--- NOTE | 2016-10-08 12:36 | DS ---
Date/Time of Note Date/Time of Note DATE: 10/08/16 TIME: 12:34 Obstetrical Discharge Record Final Diagnosis Final Diagnosis: Term delivered Vaginal Delivery Obstetrical Delivery: Spontaneous Condition on Discharge Physical Assessment Last Vitals: Post normal vaginal delivery day 2 Vital signs stable, abdomen soft uterus firm lochia normal extremity normal recommended follow-up instructions at the clinic in 2 weeks Voiding: Yes Bowel Movement: Yes Breast: Soft, non-tender, Filling Fundus: Firm Calf Tenderness: No Patient Condition: Good JEFF ROMO MD Oct 08, 2016 12:36
[2016-10-08] MEDS: BENZOCAINE 20% 56 ML SPRAY TOP PRN (12:41)
[2016-10-08 16:13] VITALS: BP 115/69; PULSE 91; RESP 16
== END 2016-10-08 20:50 | disposition home or self-care (01) | DRG 775 ==
LOC: OBT 08:42 → L-D 08:42 → OBT 08:44 → L-D 08:44 → PP1 19:59
PROVIDERS: ADMIT Obstetrics & Gynecology; ATTEND Obstetrics & Gynecology
PROC: 10E0XZZ Delivery of Products of Conception, External Approach (ICD-10-PCS; principal; 2016-10-06)
PROC: 0HQ9XZZ Repair Perineum Skin, External Approach (ICD-10-PCS; 2016-10-06)
DX: O70.0 First degree perineal laceration during delivery (principal); Z37.0 Single live birth; Z3A.39 39 weeks gestation of pregnancy
CPT/HCPCS: 62319; 85025; 85610; 85730; 86592; 86900; 86901; 87340; G0463; J2590; J3010; J7120